=== PATIENT | male | born 1965 ===

== ENCOUNTER 2023-07-13 10:18 | Emergency (ER) | payer MEDICAID, SELFPAY ==
--- NOTE | ~2023-07-13 | CT_ITS ---
EXAMINATION: CT ANGIOGRAM HEAD CT ANGIOGRAM NECK CLINICAL INFORMATION: Reason for Exam Left-sided paresthesia involving face and arm COMPARISON: Earlier same day noncontrast head CT TECHNIQUE: Test bolus sequences followed by intravenous administration 70 mL of Omnipaque 350. Helical imaging was performed in the axial plane from the aortic arch to the skull vertex. Delayed postcontrast imaging of the head was also performed. The data was processed at the veterinary surgery technologist's workstation for generation of MIP sequences. Angled MIPs and volume rendered reformatted images were also generated at an offline 3D workstation. Stenoses are assessed in accordance with NASCET criteria unless otherwise indicated. DLP: 1662.82 mGy-cm This CT examination was performed using dose optimization techniques as appropriate, variously including the following: *Automated exposure control. *Adjustment of mA and/or kV according to patient size (this includes techniques or standardized protocols for targeted exams where dose is matched to indication/reason for exam; i.e. extremities or head). *Use of iterative reconstruction technique. FINDINGS: CT Head: There is no evidence of acute intracranial hemorrhage or edematous territorial infarction. There is no abnormal attenuation within the brain parenchyma. Garrett-white matter differentiation is preserved. The ventricles are normal in size and configuration. No evidence for obstructive hydrocephalus. Cavum septum pellucidum et vergae No abnormal mass effect or midline shift. No extra-axial fluid collections. No pathologic intra-axial enhancement or regional oligemia. No acute soft tissue or osseous abnormalities. Mild scattered ethmoid sinus opacification. CT Neck: The thyroid gland and remaining cervical soft tissues are within normal limits. Postsurgical changes from C5-C6 ACDF. Multilevel cervical spondylosis. CT Upper Chest: The visualized lung apices and upper mediastinum are within normal limits. Neck CTA: Aortic Arch: Normal contour and caliber. Two vessel branching pattern of the arch with left common carotid artery arising from the brachiocephalic trunk. Great Vessel Origins: No significant stenosis of the branch origins. Right Common Carotid Artery: No focal stenosis or occlusion. Cervical Right Internal Carotid Artery: Normal opacification without focal stenosis or occlusion. Left Common Carotid Artery: No focal stenosis or occlusion. Cervical Left Internal Carotid Artery: Normal opacification without focal stenosis or occlusion. Cervical Right Vertebral Artery: No focal stenosis or occlusion. Cervical Left Vertebral Artery: No focal stenosis or occlusion. Brain CTA: Intracranial Internal Carotid Arteries: No focal stenosis or occlusion. Right Anterior Cerebral Artery: The A1 segment is diminutive. Normal opacification of the distal HERMINIO segments. Left Anterior Cerebral Artery: Normal A1 segment. Normal opacification of the distal HERMINIO segments. Anterior Communicating Artery: Normal. Right Middle Cerebral Artery: Normal M1 segment of the MCA without focal stenosis or occlusion. Normal arborization of the distal segments. Left Middle Cerebral Artery: Normal M1 segment of the MCA without focal stenosis or occlusion. Normal arborization of the distal segments. Right Vertebral Artery: Normal V4 segment. Left Vertebral Artery: Normal V4 segment. Basilar Artery: Normal without focal stenosis or occlusion. Normal appearance of the proximal superior cerebellar arteries. The proximal basilar artery is fenestrated. Right Posterior Cerebral Artery: configuration. Normal opacification of the distal [employer]ES [employer] PRODUCTION [employer] segments. Left Posterior Cerebral Artery: Normal P1 segment. Normal opacification of the distal [employer]ES [employer]ODUCTION [employer]NAGER segments. Normal opacification of the superior sagittal, straight, transverse, and sigmoid sinuses. CT/CT angio head neck IMPRESSION: No arterial high grade stenosis or large vessel occlusion in the head or neck.
--- NOTE | ~2023-07-13 | XR_ITS ---
EXAMINATION: XR CHEST CLINICAL INFORMATION: SOB COMPARISON: None available. TECHNIQUE: 2 views of the chest were obtained. FINDINGS: No significant abnormality is noted involving the heart, lungs, mediastinum, bony thorax or soft tissues. XR/XR chest 2V IMPRESSION: Unremarkable chest examination.
--- NOTE | ~2023-07-13 | CT_ITS ---
EXAMINATION: CT HEAD WITHOUT CONTRAST CLINICAL INFORMATION: Left tongue numbness and left arm numbness. COMPARISON: None available. TECHNIQUE: Contiguous axial imaging was performed from the skull base to vertex without intravenous administration of contrast. This CT examination was performed using dose optimization techniques as appropriate, variously including the following: *Automated exposure control *Adjustment of mA and/or kV according to patient size (this includes techniques or standardized protocols for targeted exams where dose is matched to indication/reason for exam; i.e. extremities or head) *Use of iterative reconstruction technique DLP: 853 mGy-cm FINDINGS: There is no acute intra-axial, extra-axial bleed, masses, collection midline shift. There is no acute infarction in evolution. No edema seen. Garrett to white matter differentiation is maintained normal. The lateral ventricles are symmetrical in size and configuration without enlargement. There is midline stable septum pellucidum. No abnormality seen the posterior fossa. Bone windows reveal no calvarial abnormality. There is no scalp soft tissue abnormality. Bilateral paranasal sinuses and mastoid air cells are well-aerated with mild mucoperiosteal thickening right posterior ethmoid sinus.. CT/CT head/brain wo IV con IMPRESSION: No acute intracranial process seen.
[2023-07-13 10:22] VITALS: BP 185/114; PULSE 108; RESP 19; TEMP 36.6; O2SAT 98; BMI 35.1
--- NOTE | 2023-07-13 11:16 | ED_ITS ---
HPI - General Adult General Chief complaint: General Medical Stated complaint: L arm numbness/Tongue numbness Time Seen by Provider: 07/13/23 16:15 Source: patient Mode of arrival: ambulatory Limitations: no limitations History of Present Illness HPI narrative: Patient's history of hypertension diabetes not taking any medication for some because of insurance reasons complaining left facial tongue left upper extremity tingling sensation for last 2 days. Patient did have cervical fusion done for wry neck about 8 years ago no history of paresthesias like this in the past no headache no motor weakness known history of multiple sclerosis in the family no history of Lyme disease no lower extremity weakness no bladder or bowel involvement on arrival patient's blood pressure was 185/114 with pulse rate of 108. Initially patient has intermittent tingling sensation for last 24 hours has been constant no relation of tingling sensation with neck movements Related Data Previous Rx's Medication Instructions Recorded aspirin 81 mg tablet,delayed 81 mg PO DAILY #90 tabs 07/13/23 release losartan 100 1 tab PO DAILY #90 tabs 07/13/23 mg-hydrochlorothiazide 12.5 mg tablet Allergies Allergy/AdvReac Type Severity Reaction Status Date / Time No Known Allergies Allergy Verified 07/13/23 10:21 Review of Systems 2 Review of Systems: Yes all other systems are reviewed and are negative [facility] Social History Alcohol intake: current Alcohol intake frequency: holidays/special occasions only Physical Exam ED Vital Signs: Vital Signs - 24 hr 07/13/23 10:22 07/13/23 16:37 07/13/23 16:37 Temperature 98 F 97.6 F Pulse Rate 108 H 80 81 Respiratory Rate 19 18 18 Blood Pressure 185/114 H 179/117 H 179/117 H Pulse Oximetry 98 96 97 Oxygen Delivery Method Room Air Room Air 07/13/23 18:02 07/13/23 18:18 Temperature Pulse Rate 70 Respiratory Rate 19 Blood Pressure 172/120 H 179/106 H Pulse Oximetry 97 Oxygen Delivery Method Room Air BMI result Body Mass Index 35.1 Appearance: Alert. Oriented X3. No acute distress. Eyes: PERRLA, No Nystagmus ENT: Pharynx normal. Oral Mucosa moist Neck: Normal inspection. Neck supple. No midline tenderness CVS: Normal heart rate and rhythm. Pulses normal. Respiratory: No respiratory distress. Equal air entry bilateral, no wheezing/rales/rhonchi Abdomen: Soft and nontender. Bowel sounds are present, no mass palpable, no CVA tenderness Skin: Skin warm and dry. Normal skin color. Normal skin turgor. Extremities: No lower extremity edema. No calf tenderness Neuro: Oriented X 3. No motor deficit. No sensory deficit.No cerebellar signs , cranial nerves II-XII intact NIH Stroke Scale Time: 16:33 Level of Consciousness: Alert Level of Consciousness Questions: Answers both questions correctly Level of Consciousness Commands: Performs both tasks correctly Best Gaze: Normal Visual: No visual loss Facial Palsy: Normal Motor Arm (Right): No drift Motor Arm (Left): No drift Motor Leg (Right): No drift Motor Leg (Left): No drift Limb Ataxia: Absent Sensory: Normal Best Language: No aphasia Dysarthia: Normal Extinction and Inattention: No abnormality Score: 0 Course Course Course Narrative: This is an RME: Additional HPI, ROS, PE not included below will be deferred to primary provider. This is a [id number], with a history of diabetes and hypertension, presenting to the emergency department with complaints of left-sided tongue numbness and left arm numbness x2 days. Patient states that he was at home watching television when he felt some left arm numbness. It is been intermittent however over the last day or so it has been constant. Patient seen shaking out his left arm due to the numbness and tingling he is feeling. He is neurologically intact without any deficits seen. Patient also reports some chest pressure and shortness of breath upon exertion. He has been without his medications for over a month. Plan: Labs, EKG, chest x-ray, CT head Medications Administered Discontinued Medications Generic Name Dose Route Start Last Admin Trade Name Bertin PRN Reason Stop Dose Admin Aspirin 162 mg 07/13/23 19:29 07/13/23 19:40 Aspirin Enteric Coated 81 Mg Tablet.Dr PO 07/13/23 19:30 162 mg ONCE ONE Administration Iohexol 70 ml 07/13/23 17:21 07/13/23 17:21 Iohexol 350 Mg/Ml 100 Ml Infus..Btl IV 07/13/23 17:22 70 ml ONCE ONE Administration Labetalol HCl 20 mg 07/13/23 16:36 07/13/23 16:53 Labetalol Hcl 100 Mg/20 Ml Vial IVPUSH 07/13/23 16:37 20 mg ONCE ONE Administration Labetalol HCl 20 mg 07/13/23 18:19 07/13/23 18:22 Labetalol Hcl 100 Mg/20 Ml Vial IVPUSH 07/13/23 18:20 20 mg ONCE ONE Administration Losartan Potassium 50 mg 07/13/23 18:36 07/13/23 19:10 Losartan Potassium 50 Mg Tablet PO 07/13/23 18:37 50 mg ONCE ONE Administration Protocol Medical Decision Making Medical Decision Making [facility] Narrative: Patient nonspecific paresthesia left side involving the face tongue and left upper arm without any motor deficit with increases blood pressure likely the lacunar infarct CT scan is negative for acute will do CTA and neck to rule out any stenosis. Discussed Dr. Baum neurologist agreed Patient's blood pressure improved to 159/97 received 2 doses of IV labetalol and p.o. losartan Differential Diagnosis Differential Diagnoses: The differential diagnosis associated with the presentation includes TIA/CVA/hypertensive urgency/migraine Admission/Observation Consideration of admission/observation: Escalation of care including admission/observation considered Lab Data [facility] Lab Attestation statement: I reviewed the patient's lab results. 07/13/23 11:44 07/13/23 11:44 Labs: Lab Results 07/13/23 07/13/23 07/13/23 Range/Units 11:43 11:44 17:23 WBC 6.8 (4.8-10.8) X10*3/uL RBC 5.12 (4.60-5.80) X10*6/uL Hgb 15.2 (14.0-18.0) g/dl Hct 43.9 (42.0-52.0) % MCV 85.7 (80.0-98.0) fL MCH 29.7 (27.0-33.0) pg MCHC 34.6 (31.0-36.0) g/dl RDW 14.4 (11.0-16.0) % Plt Count 243 (160-400) X10*3/uL MPV 10.2 (9.4-12.4) fL Immature Gran % (Auto) 0.3 (0.0-0.4) % Neut % (Auto) 43.0 L (45-73) % Lymph % (Auto) 44.7 H (20-40) % [place] % (Auto) 7.8 (2-11) % Eos % (Auto) 3.3 (0-4) % Baso % (Auto) 0.9 (0-2) % Lymph # (Auto) 3.0 (1.2-4.9) X10*3/uL [place] # (Auto) 0.5 (0.1-1.2) X10*3/uL Eos # (Auto) 0.2 (0.0-0.4) X10*3/uL Baso # (Auto) 0.1 (0.0-0.2) X10*3/uL Abs Immat Gran (auto) 0.02 (0.00-0.03) X10*3/uL Absolute Neuts (auto) 2.9 (2.0-8.3) x10*3/uL Absolute Nucleated RBC 0.000 (0.0-0.012) X10*3/uL Nucleated RBC % (auto) 0.0 (0.0-0.2) /100WBC Sodium 139 (135-145) mmol/L Potassium 4.2 (3.3-5.1) mmol/L Chloride 109 H (96-108) mmol/L Carbon Dioxide 26 (22-29) mmol/L Anion Gap 8 L (12-20) BUN 24 H (9-16) mg/dL Creatinine 1.27 (0.5-1.4) mg/dL Estim Creat Clear Calc 79.0 Estimated GFR 58 POC Glucose 148 H (60-115) mg/dL Random Glucose 141 H (60-115) mg/dL Calcium 9.4 (8.4-10.2) mg/dL Magnesium 2.3 (1.6-2.6) mg/dL Total Bilirubin 0.3 (0.0-1.0) mg/dL Direct Bilirubin 0.1 (0.0-0.5) mg/dL AST 14 (5-37) U/L ALT 12 (0-40) U/L Alkaline Phosphatase 99 (39-117) U/L Troponin I High Sens 15.1 (<3.5-35.0) ng/L Total Protein 7.9 (6.5-8.0) g/dL Albumin 4.2 (3.5-5.0) g/dL Influenza Type A (PCR) NEGATIVE (Negative) Influenza Type B (PCR) NEGATIVE (Negative) RSV RNA Qual (PCR) NEGATIVE (Negative) SARS-CoV-2 RNA (RT-PCR) NEGATIVE (Negative) Independent Interpretation I performed an independent interpretation of an: EKG and CT Scan Interpretation: No sinus rhythm heart rate 90 beats per minute left anterior fascicular block LVH no acute ST-T no acute ischemia Radiology Impression Discussion of test interpretation with radiology: I have reviewed the radiologist's reading. Radiologist Impression: CT/CT angio head neck IMPRESSION: No arterial high grade stenosis or large vessel occlusion in the head or neck. Critical Care Time Critical Care Time Critical Care Time: Yes Total Critical Care Time: 60 Attestation: The patient was critically ill with a high probability of imminent or life threatening deterioration. I spent greater than 65 minutes of discontinuous time evaluating the patient,delivering critical care at the bedside, discussing and evaluating pertinent data with consultants. Critical care time does not include time spent performing separately billable procedures or teaching. Total time spent performing critical care was 60 minutes. Discharge Plan Discharge Clinical Impression: Hypertension, Paresthesia Patient Disposition: Home, Self-Care Instructions: Chronic Hypertension (ED), Paresthesia (ED) Additional Instructions: Continue to do exercise, decrease salt intake Start taking baby aspirin daily Take blood pressure medications daily Your blood pressure should be less than 135/85 Check your blood pressure before taking medicine and before going to bed Follow-up with PCP and neurologist Prescriptions: New losartan-hydrochlorothiazide 100-12.5 mg tablet 1 tab PO DAILY Qty: 90 3RF aspirin 81 mg tablet,delayed release (DR/EC) 81 mg PO DAILY Qty: 90 3RF Referrals: Yaneth Baum MD [Physician] - 1 week Dania Cuello MD [Physician] - 1 week Interventions: ED Discharge Assessment Last Done: 07/13/23 19:44 Discharge Date/Time: 07/13/23 19:45
--- NOTE | 2023-07-13 11:21 | ECG_ITS ---
Test Reason : CP, L ARM NUMBNESS Blood Pressure : / mmHG Vent. Rate : 090 BPM Atrial Rate : 090 BPM P-R Int : 166 ms QRS Dur : 084 ms QT Int : 372 ms P-R-T Axes : 018 -41 118 degrees QTc Int : 455 ms Normal sinus rhythm Left anterior fascicular block Nonspecific ST abnormality Anteroseptal leads Pulmonary disease pattern Left ventricular hypertrophy with repolarization abnormality ( R in aVL , Neo product , Romhilt-Boyd ) Abnormal ECG No previous ECGs available Referred By: Pham Barrow Electronically Signed By:CRISTINO PETE MD
[2023-07-13 11:49] LABS: MANUAL DIFF FLAG NO
[2023-07-13 11:51] LABS: Basophils Absolute Auto 0.1 X10*3/uL (0.0-0.2); Basophils Percent Auto 0.9 % (0-2); Eosinophils Absolute Auto 0.2 X10*3/uL (0.0-0.4); Eosinophils Percent Auto 3.3 % (0-4); Hematocrit 43.9 % (42.0-52.0); Hemoglobin 15.2 g/dl (14.0-18.0); Imm Gran Abs Auto 0.02 X10*3/uL (0.00-0.03); Imm Gran Pct Auto 0.3 % (0.0-0.4); Lymphocytes Percent Auto 44.7 % (20-40); Mean Corpuscular HGB Conc 34.6 g/dl (31.0-36.0); Mean Corpuscular Hemoglobin 29.7 pg (27.0-33.0); Mean Corpuscular Volume 85.7 fL (80.0-98.0); Mean Platelet Volume 10.2 fL (9.4-12.4); Monocytes Absolute Auto 0.5 X10*3/uL (0.1-1.2); Monocytes Percent Auto 7.8 % (2-11); Neutrophils Absolute Auto 2.9 x10*3/uL (2.0-8.3); Platelet Count 243 X10*3/uL (160-400); Red Blood Count 5.12 X10*6/uL (4.60-5.80); Red Cell Distribution Width 14.4 % (11.0-16.0); White Blood Count 6.8 X10*3/uL (4.8-10.8)
[2023-07-13 12:07] LABS: Alanine Aminotransferase 12 U/L (0-40); Albumin Level 4.2 g/dL (3.5-5.0); Alkaline Phosphatase 99 U/L (39-117); Anion Gap 8 (12-20); Aspartate Amino Transferase 14 U/L (5-37); Bilirubin Direct 0.1 mg/dL (0.0-0.5); Bilirubin Total 0.3 mg/dL (0.0-1.0); Blood Urea Nitrogen 24 mg/dL (9-16); Calcium 9.4 mg/dL (8.4-10.2); Carbon Dioxide 26 mmol/L (22-29); Chloride 109 mmol/L (96-108); Estimated Glomerular Filt Rate 58; Glucose Random 141 mg/dL (60-115); Potassium 4.2 mmol/L (3.3-5.1); Sodium 139 mmol/L (135-145); Total Protein 7.9 g/dL (6.5-8.0)
[2023-07-13 12:11] LABS: Troponin-I High Sensitivity 15.1 ng/L (<3.5-35.0)
[2023-07-13 12:30] LABS: Influenza A PCR NEGATIVE (Negative); Influenza B PCR NEGATIVE (Negative); Resp Syncy Virus RNA Qual PCR NEGATIVE (Negative); SARS COV2 PCR INHOUSE NEGATIVE (Negative)
[2023-07-13 16:37] VITALS: BP 179/117; PULSE 80; PULSE 81; RESP 18; TEMP 36.4; O2SAT 96; O2SAT 97
[2023-07-13] MEDS: Labetalol HCL 100 MG/20 ML VIAL 20 MG IVPUSH ×2 (16:53→18:22)
--- NOTE | 2023-07-13 16:56 | PC.NURSE ---
a&ox3, vss and up to date aside from being hypertensive. pt verbalizing no pain at this time. only complaint is numbness/tingling in LUE - pt states that sx started on wednesday. pt is noncompliant w/ medication d/t insurance issues. 20gIV placed in right AC w/o difficulty - medications administered per provider order. respirations even and unlabored. call martines placed within reach.
--- NOTE | 2023-07-13 16:59 | PC.NURSE ---
pt to CT at this time.
[2023-07-13] MEDS: iohexoL 350 MG/ML 100 ML INFUS..BTL 70 ML IV (17:21)
[2023-07-13 17:29] LABS: Glucose, Whole Blood 148 mg/dL (60-115)
[2023-07-13 18:02] VITALS: BP 172/120; PULSE 70; RESP 19; O2SAT 97
[2023-07-13 18:18] VITALS: BP 179/106
--- NOTE | 2023-07-13 18:22 | PC.NURSE ---
provider aware of pt remaining hypertensive at this time - medication administered per provider order.
[2023-07-13] MEDS: Losartan Potassium 50 MG TABLET PO (19:10)
[2023-07-13] MEDS: Aspirin Enteric Coated 81 MG TABLET.DR 162 MG PO (19:40)
[2023-07-13 20:10] LABS: Magnesium 2.3 mg/dL (1.6-2.6)
== END 2023-07-13 19:45 | disposition home or self-care (01) ==
PROVIDERS: Physician Assistant Medical; Emergency Provider Internal Medicine
DX: R07.89 Other chest pain (principal); R20.0 Anesthesia of skin; I10 Essential (primary) hypertension; R20.2 Paresthesia of skin; R06.02 Shortness of breath; R94.31 Abnormal electrocardiogram [ECG] [EKG]; Z20.822 Contact with and (suspected) exposure to COVID-19; Z20.828 Contact with and (suspected) exposure to other viral communicable diseases; Z79.899 Other long term (current) drug therapy
CPT/HCPCS: 0241U; 70450; 70496; 70498; 71046; 80048; 80076; 82947; 83735; 84484; 85025; 93005; 96374; 96376; 99284; 99285; J1920; Q9967